=== PATIENT | male | born 1950 | race Caucasian/White ===

== ENCOUNTER 2020-06-24 14:10 | Outpatient (RCR) | payer MEDICARE, BC, SELFPAY | END 2020-06-30 12:15 | disposition home or self-care (01) | LOC: HO.WCC 14:10 | PROVIDERS: Visit Provider Physician Assistant Surgical | DX: Z09 Encounter for follow-up examination after completed treatment for conditions other than malignant neoplasm (principal); M20.42 Other hammer toe(s) (acquired), left foot; L84 Corns and callosities; E78.00 Pure hypercholesterolemia, unspecified; I10 Essential (primary) hypertension | CPT/HCPCS: 99212 ==

== ENCOUNTER 2021-04-27 10:35 | Day surgery (SDC) | payer MEDICARE, BC, SELFPAY ==
--- NOTE | 2021-04-26 14:46 | HP_ITS ---
DATE OF SERVICE: 04/27/2021 DATE OF PROPOSED SURGERY: April 27, 2021. PREOPERATIVE DIAGNOSES: 1. Hammertoe, left 3rd toe. 2. Chronic nonhealing skin ulcer, left 3rd toe. 3. Probable osteomyelitis of the distal phalanx of the left 3rd toe. PLANNED PROCEDURES: 1. Hammertoe repair, left 3rd toe. 2. Excision of skin ulcer, left 3rd toe. 3. Bone biopsy, left 3rd toe and complex wound closure overlying exposed tendon and bone. PLANNED ANESTHESIA: Local anesthesia. CHIEF COMPLAINT AND HISTORY OF PRESENT ILLNESS: Mr. Chang is a 70-year-old male, who relates history of chronic recurrent skin ulcer with multiple episodes of skin infection over the past several years duration involving the left 3rd toe. He has undergone extensive conservative care consisting of wound care, diabetic shoe gear, offloading padding, splinting, multiple episodes of oral antibiotics and the patient is now requesting surgical treatment for this chronic condition. PAST MEDICAL HISTORY: Positive for type 2 diabetes, high cholesterol, hypertension, and history of orthopedic knee implant. CURRENT MEDICATIONS: Amlodipine, aspirin 81 mg, carvedilol 12.5 mg, CoQ10, glipizide, Lipitor, losartan, metformin, multivitamin, Flomax, and gabapentin. ALLERGIES: THE PATIENT HAS NO KNOWN ALLERGIES OR DRUG SENSITIVITIES. FAMILY HISTORY: Positive for diabetes as well as a history of foot problems. SOCIAL HISTORY: The patient denies smoking, relates only rare alcohol consumption, denies use of recreational drugs and drinks typically 1 to 2 cups of coffee per day. PODIATRIC PHYSICAL EXAM: VASCULAR EXAM: The patient displays +3/4 pulse of DP, +2/4 pulse of PT with normal cap refill time noted bilateral feet. DERMATOLOGIC: Reveals a skin ulceration at the plantar distal aspect of the left 3rd toe, which measured most recently on April 04, 2021, 2 mm diameter x 2 mm depth. NEUROLOGIC EXAM: Reveals diminished sharp dull sensation, diminished light touch, reduced vibratory sensation bilateral feet up to the mid foot. ORTHOPEDIC EXAM: Reveals pes cavus foot structure on the left, pes planus foot structure on the right, Charcot deformity of the right, bunion, bilateral feet, right more severe than the left, and then arthritic non-reducible hammertoes 2nd through 5th toes bilateral feet. The patient was seen most recently in my office on April 04, 2021. Preoperative informed consent was obtained from the patient that day. Preoperative medical clearance is not necessary given the fact that this is local anesthetic, but we will have communicated to his primary care office, the intention and there are no contraindications of surgery. CHRIS Gomez/DEBRA / [id number]
[2021-04-27 10:56] VITALS: BMI 35.2
[2021-04-27 11:02] VITALS: BP 150/86; PULSE 69; RESP 18; TEMP 35.9; O2SAT 96
--- NOTE | 2021-04-27 11:21 | MHC.SHP ---
Pre-Procedural Eval Section A Date of Service: 04/27/21 The patient is an INPATIENT: No Changes since office visit: No Cold of Flu in the past 2 weeks, No New Medical Problems, No Changes in Medication and No Patient answered all questions The History & Physical has been completed within 30 days and I have reviewed it.: Yes Section B Chief Complaint: m Relevant Family History (Specify if Yes): No Relevant Social History: None Allergies: Allergies Allergy/AdvReac Type Severity Reaction Status Date / Time fosinopril [From Monopril] AdvReac Cough Verified 04/26/21 13:23 Plan Diagnosis/Plan: Unchanged I have reviewed the history and physical and performed a pertinent physical examination on my patient. No changes have occurred unless specified.
[2021-04-27 11:27] LABS: Glucose, Whole Blood 119 mg/dL (60-115)
--- NOTE | 2021-04-27 12:59 | PCN2_ITS ---
Brief Operative Note Date of procedure: 04/27/21 Pre-op diagnosis: hammertoe left 3rd, skin ulcer left, osteomyelitis left Post-op diagnosis: same Procedure: hammertoe repair left 3rd toe, excision of skin ulcer 2.5 cm in diameter, bone biopsy with coomplex wound closure overlying exposed bone and tendon left 3rd toe Anesthesia: local Surgeon: Hiro Cheng [employer] Supervisor: Clara Lewis Estimated blood loss (mL): 2.5 Condition: stable Disposition: same day
[2021-04-27 13:00] VITALS: BP 146/88; PULSE 66; RESP 18; TEMP 36.7; O2SAT 96
--- NOTE | 2021-04-27 14:38 | OP_ITS ---
SURGEON: Hiro Cheng DPM PREOPERATIVE DIAGNOSIS: POSTOPERATIVE DIAGNOSIS: PROCEDURE PERFORMED: ESTIMATED BLOOD LOSS: COMPLICATIONS: ANESTHESIA: Consisted of local administration of a total of 4 mL of an equal mix of 2% lidocaine with epinephrine 1:100,000 and 0.5% Marcaine plain. ASSISTANTS: Clara Lewis DPM. SPECIMENS: PREOPERATIVE DIAGNOSES: 1. Hammertoe, left 3rd toe. 2. Nonhealing skin ulcer, left third toe distal aspect. 3. Osteomyelitis of the distal phalanx of the left 3rd toe. POSTOPERATIVE DIAGNOSES: 1. Hammertoe, left 3rd toe. 2. Nonhealing skin ulcer, left third toe distal aspect. 3. Osteomyelitis of the distal phalanx of the left 3rd toe. PROCEDURES PERFORMED: 1. Hammertoe repair, left 3rd toe. 2. Excision of skin ulcer, left 3rd toe measuring 2.5 cm in diameter. 3. Bone biopsy of distal aspect of distal phalanx, left 3rd toe. 4. Complex wound closure overlying exposed tendon and bone, left 3rd toe. INTRODUCTION: The patient was brought to the operating room, placed on the operating table in the supine position. After having been suitably anesthetized with local infiltrative anesthesia, left lower extremity was then prepped and draped in the usual sterile manner. HAMMERTOE REPAIR, LEFT 3RD TOE. Attention was directed to the dorsum of left third toe proximal interphalangeal joint, where an incision centered over this joint was approximately 2.5 cm in length. The incision was deepened in same plane. Hemostasis was acquired as necessary. The skin margins were underscored and retracted. A transverse incision was effected through the extensor tendon complex at the level of the PIP joint and the extensor tendon was underscored and retracted. The hypertrophic head of the proximal phalanx was then delivered from the wound and excised utilizing sagittal saw. The wound was irrigated. The capsule was closed with 3-0 Vicryl. Skin margins were closed with 4-0 nylon. EXCISION OF SKIN ULCER, DISTAL LEFT 3RD TOE. Attention was directed to the left third toe, where a transverse incision was effected at the level of the distal interphalangeal joint and a converging elliptical incision was effected distally to excise the distal ulceration of the left third toe entirely. Incisions were deepened in the same plane and carried down to bone. The skin ulcer as well as distal phalanx was resected and disarticulated and removed. On the back table utilizing a bone rongeur, a bone biopsy was taken from the distal aspect of the distal phalanx and sent for Microbiology as well as sent to gross pathology. The wound was irrigated with copious amounts of sterile saline. Then utilizing combination of both 3-0 and 4-0 nylon, complex wound closure over exposed bone and tendon was accomplished via simple sutures. CONCLUSION: At the inclusion of these procedures, the operative site was injected with 2 mL of Marcaine 0.5% plain, sterile Xeroform, Betadine-soaked gauze, Kerlix, fluffs, and Conform were applied to the left lower extremity. The patient tolerated the surgery and anesthesia well and left the operating room via cart to the recovery room with vital signs stable. FINAL DISPOSITION: The patient is discharged to home with instructions for self-care include the followin. To keep the dressings dry, clean, and intact. 2. To keep the left leg elevated with ice above the ankle. 3. To take all medications as prescribed. 4. To limit activity to minimum. 5. To always use walker and surgical shoe and ambulate either partial weightbearing or nonweightbearing of the left lower extremity. The patient will be taking Tylenol as needed for pain as well as gabapentin p.r.n. pain as well. The patient has prescription for Levaquin 750 mg to be taken daily. . CHRIS Gomez/DEBRA / [id number]
== END 2021-04-27 13:23 ==
LOC: HO.SSS 10:35
PROVIDERS: PCP Internal Medicine; Visit Provider Podiatrist
PROC: (CPT 28285; principal; 2021-04-27 11:40)
DX: M20.42 Other hammer toe(s) (acquired), left foot (principal); L97.526 Non-pressure chronic ulcer of other part of left foot with bone involvement without evidence of necrosis; M86.9 Osteomyelitis, unspecified
CPT/HCPCS: 28285; 20220; 11423; 13131; 82947; 87071; 87205; 88304; 88305; 88307; 88311